=== PATIENT | male | born 1990 | race Caucasian/White ===

== ENCOUNTER 2018-06-08 04:40 | Day surgery (SDC) | payer OTHER ==
[~2018-06-08] VITALS: Ht 157.5 cm; Wt 90.7 kg
[~2018-06-08 04:40] MED LIST: LEVSIN PO; PEPCID AC20 MG PO; PROTONIX40 MG PO; SYNTHROID125 MCG PO
== END 2018-06-08 13:00 | disposition home or self-care (01) ==
LOC: SURH 04:40 → O/R 04:40 → CIR.AMB 04:40 → SURH 07:00 → EDSTATUS 07:30 → O/R 11:20 → CIR.AMB 13:00
DX: K80.12 Calculus of gallbladder with acute and chronic cholecystitis without obstruction (principal)